=== PATIENT | female | born 1965 | race Caucasian/White ===

== ENCOUNTER 2023-12-07 04:01 | Inpatient (IN) | payer OTHER, SELFPAY ==
[2023-12-06 21:44] VITALS: BP 154/96
[2023-12-06 22:16] LABS: % Basophils 0.5 % (0-2); % Immature Granulocytes 0.1 % (0-0.5); % Lymphocytes 33.8 % (20.5-51.1); % Monocytes 8.3 % (1.7-9.3); % Neutrophils 56.3 % (42.2-75.2); Absolute Eosinophils 0.1 10^3/uL (0-0.7); Absolute Lymphocytes 2.7 10^3/uL (1.2-3.4); Absolute Monocytes 0.7 10^3/uL (0.1-0.6); Absolute Neutrophils 4.5 10^3/uL (1.4-6.5); Hematocrit 39.6 % (37.0-47.0); Hemoglobin 13.3 g/dL (12.0-16.0); Mean Corp Hgb Conc. 33.6 g/dL (33.0-37.0); Mean Corpuscular Hgb 30.9 pg (27.0-31.0); Mean Corpuscular Volume 92.1 fL (81.0-99.0); Mean Platelet Volume 9.7 fL (7.4-10.4); Nucleated Red Blood Cells % 0 %; Platelet Count 225 10^3/uL (130-400); Red Cell Dist. Width 12.2 % (11.5-14.5); White Blood Cell Count 7.9 10^3/uL (4.8-10.8)
[2023-12-06 22:28] LABS: ALT (SGPT) 18 U/L (0-35); AST (SGOT) 24 U/L (14-36); Alkaline Phosphatase 68 U/L (38-126); Blood Urea Nitrogen 10 mg/dl (7-17); Calcium 10.2 mg/dl (8.4-10.2); Carbon Dioxide 28 mmol/L (22-30); Chloride 95 mmol/L (98-107); Glucose 105 mg/dl (70-99); Sodium 131 mmol/L (135-145); Total Bilirubin 0.5 mg/dl (0.2-1.3); Total Protein 8.1 g/dl (6.3-8.2); eGFR > 60.00
[2023-12-06 22:31] LABS: Alcohol None Detected
[2023-12-07] VITALS (15 sets, daily range): BP systolic 111–169; BP diastolic 65–93; PULSE 72–91; O2SAT 95; BMI 28.6; BMI 28.9
--- NOTE | 2023-12-07 01:34 | ED.GENMED ---
History of Present Illness
General
Chief Complaint: Dizziness
Source: patient
Exam Limitations: none
Time Seen by Provider: 12/07/23 00:52
History of Present Illness
History of Present Illness:
58-year-old female has felt slightly off the last 2 days just feeling generally tired. Today she felt lightheaded early followed by disequilibrium. Is having trouble walking with this. No true vertigo no headache no other neurologic symptoms. No
positional component.
Past History
Past History
ED Past Medical History: Hypothyroidism and Other (Chronic diarrhea, urinary incontinence)
ED Past Surgical History: Other (Incontinence surgery)
Social History
Tobacco: Smoker
Alcohol: Binge drinker
Drug: None
Personal: Single
Living: alone (With boyfriend)
Employment: Not employed
Family History
Family History: Other (n/c)
Review of Systems
Review of Systems
All Other Systems: Not applicable
Constitutional: Denies fever or chills
Respiratory: Reports no symptoms
Cardiac: Reports no symptoms
ABD/GI: Reports no symptoms
Phy Exam
Physical Exam
Physical Exam:
GENERAL: Alert and oriented in no apparent distress
EYE: Orbits normal.
NECK: Supple, no significant adenopathy.
ENT: Pharynx without erythema
CARDIAC: Regular rate and rhythm without any obvious murmurs.
LUNGS: Clear breath sounds,normal
ABDOMEN: Soft, without focal tenderness or distention
NEUROLOGICAL: Alert and oriented , speech normal. Cranial nerves II through XII intact. [id number] normal. Gait wide-based and off. Positive Romberg.
SKIN: Warm and dry, no rash or lesion, no discoloration, skin intact.
MUSCULOSKELETAL: No edema,no deformity.Good color
PSYCH: Normal and appropriate interaction.
Course
Orders/Labs/Results
Orders:
Orders
12/06/23 21:48
Electrocardiogram (*1) Urgent
Reason for Study: Vertigo / Dizzy
Head wo Contrast CT [CT Head W/o Iv Contrast] Urgent
Comment:
Reason For Exam: dizziness
EKG- Treatment ONCE
12/06/23 21:54
Alcohol Urgent
CMP [Comprehensive Metabolic Panel] Urgent
Complete Blood Count/With Diff Urgent
12/07/23 00:52
IV Insert/Care/Rem.- Treatment PRN
Meclizine [Antivert] 25 mg PO NOW STA
12/07/23 02:43
Thiamine Injection 200 mg IV NOW STA
12/07/23 02:45
0.9% Sodium Chloride 1000 ml [Nss] 1,000 ml IV 250 mls/hr
12/07/23 03:49
Admit/Transfer Patient As Directed
Co-Sign Provider:
Level of Care: Inpatient admission
Assign to:: Telemetry
Physician / Group: Dustin
Diagnosis: Vertigo
Reason for Telemetry: Arrhythmia
Date to Stop Telemetry: 12/10/23
Time to Stop Telemetry: 11:00
Reason for Hospitalization: Vertigo
Expected length of stay greater than two midnights?: Yes
ELOS- Estimated Length of Stay in days: 2
I certify the patient meets the requirements for IP care: Yes
12/07/23 03:50
Code Status As Directed
Resuscitation Status: Full Code
12/07/23 04:13
Magnesium Urgent
Phosphorus Urgent
12/07/23 Breakfast
Regular
At Your Request: Limited Participation
Levothyroxine [Synthroid] 112 mcg PO DAILY@0600
12/07/23 06:07
0.9% Sodium Chloride [Nss (Preservative Free)] See Protocol IV PRN PRN
Acetaminophen [Tylenol] 650 mg PO Q4HPRN PRN
Albuterol Nebs [Ventolin Nebules] 2.5 mg INH R Q4HPRN PRN
FOLic ACID [Folvite] 1 mg 0.9% Sodium Chloride 50 ml [Nss] 50 ml IV DAILYPRN
Ketorolac [Toradol] 10 mg IV Q6HPRN PRN
Lactated Ringers [Lr] 1,000 ml IV 80 mls/hr
Lorazepam [Ativan] 1 mg IV Q1HPRN PRN
Lorazepam [Ativan] 1 mg PO Q2HPRN PRN
Lorazepam [Ativan] 2 mg IV Q1HPRN PRN
Metoclopramide [Reglan] 10 mg IV Q6HPRN PRN
12/07/23 06:07
Case Management Consult Once
Case Management Consult: Other
Comment: Substance abuse counseling
DIETARY CONSULT Routine
Reason for Consult: Nutrition support, possible refeeding guidelines
Activity As Directed
Activity Level: Ambulate
With Assistance
EKG with chest pain [ECG as needed] As Directed
ECG as needed for:: Chest Pain
I/O [Intake/ Output] As Directed
Frequency: Per unit guidelines
MSAS SCORE As Directed
MSAS Score 0-4: Repeat MSAS every 2 hours until 0-4 for three consecutive assessments, then every 4 hours x 48
hours.
MSAS Score 5-7: For MILD withdrawl symptoms. Repeat MSAS and RASS every 2 hours
MSAS Score 8-11: For MODERATE withdrawal symptoms. Repeat MSAS and RASS every 1 hour. Consider ICU or IMU
level of care.
MSAS Score > 11: For SEVERE withdrawal symptoms. Repeat MSAS and RASS every 1 hour. Notify provider, consider
ICU level of care.
MSAS Additional Instructions: If no improvement or no decrease in score from severe to moderate within 12
hours, consult psychiatry
MSAS Notify Provider: Notify provider if patient requires more than 10 mg of Lorazepam in eight hour period.
Neurological Checks As Directed
Frequency: q4h
Orthostatic Vital Signs As Directed
Orthostatic VS Frequency: BID
Pneumatic Compression Sleeves As Directed
Type: Knee high
Vital Signs As Directed
Frequency: Per unit guidelines
Oxygen Therapy [O2 Therapy] [RESP] Routine
Titrate/Wean O2 to maintain O2 sat greater than (%): 94
Ot Eval And Treat Routine
PT Consult [Pt Eval And Treat] Routine
Activity Level: Ambulate
With Assistance
DX Deep Vein Thrombosis Video Routine
12/07/23 06:55
TSH Reflex To Free T4 Routine
12/07/23 08:00
FOLic ACID [Folvite] 1 mg PO DAILY
Ipratropium/Albuterol Sulfate [Duoneb] 3 ml INH R QID
Thiamine Injection 200 mg IV Q8
12/08/23 07:13
Basic Metabolic Panel IN AM
Complete Blood Count/No Diff IN AM
12/10/23 08:00
Thiamine HCl [Vitamin B1] 100 mg PO BID
12/10/23 11:00
DC Protocol for Telemetry ONCE
Abnormal Lab Results
12/06/23
21:54
Absolute Monos (auto) 0.7 H 10^3/uL
(0.1-0.6)
Sodium 131 L mmol/L
(135-145)
Chloride 95 L mmol/L
(98-107)
Glucose 105 H mg/dl
(70-99)
12/06/23 21:54
12/06/23 21:54
Vital Signs
Initial and Last Documented VS:
Initial Vital Signs
Temp Pulse Resp BP Pulse Ox
97.7 F 86 18 154/96 100
12/06/23 21:44 12/06/23 21:44 12/06/23 21:44 12/06/23 21:44 12/06/23 21:44
Last Documented Vital Signs
Temp Pulse Resp BP Pulse Ox
97.9 F 72 16 137/79 100
12/08/23 15:00 12/08/23 15:30 12/08/23 15:30 12/08/23 15:00 12/08/23 15:30
*Radiology
Radiology exam reviewed: radiology read reviewed (Negative head CT)
*Pulse Oximetry
Patient hypoxic: no
*EKG
Interpreted by ED Provider?: Yes
Interpretation: normal
Comparison EKG: no changes
Heart Rate: 77
Rate: normal
Rhythm: sinus
[place]: normal axis
Interval: normal interval
QRS Pattern: normal QRS
Ischemia: no ischemia
*Critical Care Note
Total Time (30-74mins, 75-104mins- exclusive of procedures): Not Applicable
Update Note
Update Note:
Patient rechecked and remains moderately ataxic. Differential would include small vessel disease CVA vitamin deficiency. Will admit for further care
ED Attending Note
-
Portions of this chart may have been created with voice recognition software.� Occasional wrong word or��sound alike� substitutions may have occurred due to the inherent limitations of voice recognition software.
Discharge Plan
Departure
Patient Disposition: Admit
Date of Disposition: 12/07/23
Time of Disposition: 02:45
Presentation/result/management discussed w/ accepting MD/DO: Hospitalist
Discharge Problem:
Ataxia
Interventions
Interventions:
*General Assessment Last Done: 12/07/23 00:45
*Neglect/Abuse Screening Last Done: 12/07/23 00:45
ED- Fall Risk Assessment Last Done: 12/07/23 00:45
*Nursing Disposition Last Done: 12/07/23 06:07
ED- Neurological Assessment Last Done: 12/07/23 00:45
ED Swallowing Screen Last Done: 12/07/23 00:45
Discharge Date and Time
Discharge Date/Time: 12/07/23 06:07
[2023-12-07] MEDS: ANTIVERT 25 MG PO (01:56)
--- NOTE | 2023-12-07 03:54 | HPS.HSE ---
Family Physician
-
Family Physician: NOT KNOW UNKNOWN - PT DOES
Chief Complaint
-
Dizziness
History of Present Illness
Patient is a 58y F with PMH significant for migraine headaches and alcohol use disorder who presents to ED complaining of dizziness. Patient states that she has felt unwell for the past 2-3 days including general fatigue, increased SOB and
'foggy' feeling. Today she felt dizzy / unsetady on her feet and was unable to stand or ambulate without holding onto furniture or similar. She did not fall. She did not lose consciousness.
Patient presented to the ED for further evaluation. She notes that she had similar symptoms in 2017 which were attributed to migraine.
Patient does admit to headache here in the ED as well.
She denies any focal numbness / weakness. No N/V/D. No fevers / chills.
Patient does drink alcohol daily and states that her last drink was Wednesday evening.
Medical History
Past Medical History
Past Medical History: Reports Other
Additional Past Medical History:
Hypothyroidism
Alcohol Use Disorder
Migraine Headaches
Dyslipidemia
Past Surgical History: Reports Other
Additional Past Surgical History:
Pelvic Floor Surgery
Social History
Tobacco: Smoker (Current every day smoker.)
Alcohol: Daily (7+ drinks per day. Last drink Wednesday evening.)
Drug: None
Family History
Family History: Not pertinent
Allergies / Home Medications
Allergies reflects when Allergies were last updated in [facility].
Home Medications with original date entered in [facility]
Allergy/Medication List:
Allergies
Allergy/AdvReac Type Severity Reaction Status Date / Time
No Known Allergies Allergy Verified 12/06/23 21:43
Home Medications
albuterol sulfate 90 mcg/actuation aerosol inhaler 1 puff inhalation R Q4HPRN PRN wheezing 04/07/17
budesonide-formoterol HFA 160 mcg-4.5 mcg/actuation aerosol inhaler (Symbicort) 2 puff inhalation BID 12/07/23
levothyroxine 112 mcg tablet 112 mcg PO DAILY 12/07/23
Review of Systems
-
History Source: Patient
A 12 point ROS was completed and negative except as noted: Yes
Constitutional: Reports Fatigue; Denies Fever or Chills
Respiratory: Reports Trouble Breathing and Other (Wheezing); Denies Cough
Cardiac: Denies Chest Pain or Palpitations
Abdomen/GI: Denies Abdominal Pain, Nausea, Vomiting, Diarrhea or Constipated
: Denies Dysuria or Frequency
Musculoskeletal: Denies Edema
Neurological: Reports Dizzy and Headache; Denies Weakness or Numbness
Psych: Denies Depression or Anxiety
Physical Exam
Vital Signs
Vital Signs
Temp Pulse Resp BP Pulse Ox
97.7 F 86 18 154/96 100
12/06/23 21:44 12/06/23 21:44 12/06/23 21:44 12/06/23 21:44 12/06/23 21:44
Physical Exam
General: Other (58y F in no acute distress. Appears older than stated age.)
HEENT: Moist mucous membranes and PERRLA
Respiratory: Other (Diffuse expiratory wheezes. No rales / rhonchi.)
Cardiac: S1/S2 and Regular Rhythm; No Murmur
GI: Non Tender, Non Distended, Normal Bowel Sounds and Other (Obese)
Musculoskeletal: No Clubbing, No Cyanosis and No Edema
Neuro: AO x 3 and Other (No appreciable nystagmus. No focal weakness / sensory deficit.)
Laboratory Results
-
12/06/23 21:54
12/06/23 21:54
Laboratory Results
Total Bilirubin 0.5 mg/dl (0.2-1.3) 12/06/23 21:54
AST 24 U/L (14-36) 12/06/23 21:54
ALT 18 U/L (0-35) 12/06/23 21:54
Alkaline Phosphatase 68 U/L (38-126) 12/06/23 21:54
Impression/Plan
-
A/P: Patient is a 58y F with PMH significant for alcohol use disorder and migraine headaches who presents to ED complaining of ataxia.
Ataxia
Migraine Headache
- Admit for further evaluation and treatment.
- CT unremarkable in the ED. Minimal improvement with single dose of meclizine.
- Symptoms likely due to vestibular migraine - similar to 2017 episode.
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
- Supportive care including PRN BZDs, etc.
- PT / OT evaluations.
- Reglan / Toradol for migraine symptoms.
- Follow for clinical improvement.
Alcohol Use Disorder
- Significant alcohol intake. Last drink > 24 hours ago.
- Monitor for signs / symptoms of withdrawal and treat with BZDs as needed.
- Thiamine / folate / etc replacement.
- Very likely that ongoing alcohol use is also contributing to chronic gait / stability issues.
Mild Hyponatremia
- Likely secondary to alcohol intake.
- Monitor for improvement. Fluid restrict if Na levels decrease.
COPD
- Mild, scattered wheezing on exam.
- Patient admits that she does not take her inhalers as prescribed.
- She continues to smoke.
- DuoNebs ATC and albuterol PRN.
- Restart Symbicort BID.
Hypothyroidism
- Continue current T4 supplementation.
- Update TFTs.
DVT Prophylaxis: SCDs
Code Status: Full
[2023-12-07] MEDS: NSS 1000 IV (04:14)
[2023-12-07] MEDS: THIAMINE INJECTION 200 MG IV ×3 (04:17→16:25)
[2023-12-07 04:43] LABS: Magnesium 2.2 mg/dl (1.6-2.3); Phosphorus 4.4 mg/dl (2.5-4.5)
--- NOTE | 2023-12-07 06:06 | PTCARENOTE ---
Pt received from ED to [id number]. Pt oriented to room and call hooks.
[2023-12-07] MEDS: DUONEB 3 ML INH ×4 (07:25→19:12)
[2023-12-07] MEDS: SYMBICORT 160/4.5 MCG INHALER 2 PUFF INH ×2 (07:25→19:13)
[2023-12-07] MEDS: FOLVITE PO ×2 (08:01→09:44)
[2023-12-07] MEDS: FOLVITE 50.2000000000000028 MG IV (08:01)
[2023-12-07] MEDS: SYNTHROID 112 MCG PO (08:01)
[2023-12-07] MEDS: LR 1000 IV ×2 (08:02→20:57)
[2023-12-07 08:33] LABS: TSH Reflex To Free T4 6.89 uIU/ml (0.47-4.68)
[2023-12-07 09:03] LABS: Free T4 0.86 ng/dl (0.78-2.19)
--- NOTE | 2023-12-07 09:16 | CON.NEURO4 ---
Addendum entered and electronically signed by Damon Martinez MD 12/07/23 11:59:
Studies reviewed.
I have personally examined the patient. I reviewed and agree with the HEMODIALYSIS LAB TECHNICIAN's Note.
My addenda:
Awake, alert, interactive. No acute distress.
Speech intact.
Follows 2-step requests w/o difficulty. No tremor.
Extra-ocular movements grossly intact.
Facial movements full and symmetric. Hearing intact to normal conversational volume.
Normal UE movements bilaterally.
Neck: full ROM.
Chest: no dyspnea
Heart: no JVD
Ext: (-) Clubbing, (-) Cyanosis, (-) Edema
IMPRESSIONS/RECOMMENDATIONS:
Abrupt onset of headache and vertigo which is most likely secondary to migraine with aura
Due to the patient's history of smoking and morbid obesity, the possibility in association with her alcohol overexposure, leaves the possibility of acute ischemic stroke although less likely
Initiate aspirin if MRI of brain demonstrates an acute ischemic abnormality
Prochlorperazine as needed for headache
Continue thiamine and folate replacement
Meclizine as needed
D/W patient
Will continue to follow pending results.
Original Note:
Documented by User: Delmi Don NP 12/07/23 11:41
Consultation - Neurology 4
-
CONSULTING PHYSICIAN: Damon Martinez MD
REFERRING PHYSICIAN: Hospitalists/Dr. Love
DICTATED BY: PRISCILA Shelton
DATE/TIME OF REQUEST: 12/07/23
DATE/TIME OF CONSULTATION: 12/07/23
Reason for Consultation: Ataxia
History of Present Illness:
This is a 58-year-old right-handed female who has presented to the hospital on 12/06/23 with report of dizziness and ataxia.. Patient is known to our Neurology service from several encounters in the past for vertiginous migraine.
From previous evaluation by Neurology PRISCILA Munguia on 04/07/17:
'This is a 51 year old female who has presented to the hospital with dizziness and headache. Patient's symptoms began yesterday around 0900. She woke up at 7am and ate a sandwich and felt like her usual self. She laid back down and when she woke
up at 0900, she felt dizzy that was described by her as worse with any movement of her body position along with the need to hold onto garcia to walk. There was an associated photophobia and phonophobia that stated a week ago and has persisted as
well as nausea. The symptoms persisted and she laid in bed all day yesterday. Today she had the same symptoms along with left side of her body with pins and needles and a headache. She did have the same episode occur a couple of months ago at which
time she was found to be B12 deficient and dehydrated. She has a personal history of migraines that are brought on by any heat exposure. She saw a neurologist in the past for her migraines but not for several years and she is not on any specific
medications for this.'
MRI brain was obtained on 04/07/17 and was negative for any acute findings. She was started on amitriptyline for headache prevention at that time but stopped taking it due to side effects which she cannot recall now. She followed up with Neurology
as an outpatient twice but has not been evaluated now since 2018. Patient reports that since that time she has had about one migraine every 6 months with similar symptoms. Her migraines are typically triggered by the heat or lack of sleep. When she
starts to get a migraine she either goes to sleep or takes Tylenol and her symptoms resolve.
For the past several days, patient reports feeling fatigued, brain fog, and dyspneic. Yesterday (12/06/23), she reports several episodes of dizziness and loss of balance. Yesterday evening, she reports feeling increased pressure in her left ear and a
'vacuum' like sound. After this, the dizziness worsened to the point that she couldn't walk at all, prompting her to come to the ER for evaluation. In the ER, she developed a mild headache. CT head was obtained on arrival and is negative for any
acute abnormalities. Today (12/07/23), patient reports minimal improvement in her symptoms. Her headache is left-sided currently and is a 1-2/10. She reports photo/phonophobia and nausea but denies vomiting. The pressure in her left ear has improved
today and she reports hearing normally. She denies any vision changes, speech/swallow difficulty, numbness, weakness, chest pain, palpitations, and shortness of breath. She reports that her current symptoms feel very similar to her migraines in the
past but she wasn't able to sleep much overnight and her dizziness is lasting longer than is usually does. She is not taking any blood-thinning medications.
Past Medical History: Vertiginous migraine, hypothyroidism, chronic diarrhea, urinary incontinence.
Surgical History: Bladder surgery.
Family History: Reviewed and noncontributory.
Social History: Current smoker. Chronic alcohol use, some days 8+ drinks. Denies illicit drug use.
Allergies: No known allergies.
Home Medications: See below.
Review of Symptoms:
Patient denies any fever, chest pain, shortness of breath, or symptoms.
�Per the HPI.�All systems are reviewed negative except above.
Physical Exam:
The patient is afebrile, abdomen is nondistended, breathing is unlabored, skin is warm and dry, no edema.
NIH Stroke Scale:
I performed the NIH stroke scale on the patient on 12/07/23 at 0925. The patient scored 0 points on the NIH stroke scale assessment, which were assigned as follows: See below.
Neurologic Examination:
The patient is awake, alert and oriented x 3. She is able to follow commands and answer questions appropriately. There is no aphasia or dysarthria. On cranial nerve assessment, pupils are 3 mm bilateral, round and reactive to light and
accommodation. Visual [place] are full. Extraocular movements are intact. No nystagmus noted. Facial sensations are intact and bilaterally symmetrical, there is no facial asymmetry. Hearing is intact bilaterally to finger rub. Tongue palate and uvula
are midline. Sternocleidomastoid strengths are full bilaterally. Motor strengths are 5/5 bilateral upper and lower extremities on medical research Ferguson scale. There is no drift or involuntary movement noted. Deep tendon reflexes are 2+ bilateral
upper and lower extremities and Babinski is absent bilaterally. There was no extinction noted on double simultaneous stimulation. Coordination is intact by finger to nose bilaterally.
Lab Results: See below.
Neuro Imaging:
1. CT Head 12/06/23: No acute intracranial abnormality.
2. MRI Brain 04/07/17: Multiple small foci of increased signal in the periventricular, deep, and subcortical white matter of both hemispheres, with number of foci greater than normally seen as an incidental finding at this age. The differential
includes demyelinating disease, vasculitis, small vessel ischemic disease, and Lyme disease. Consider further assessment with intravenous contrast.
Differentials for the patient's presentation include:
1. Vertiginous migraine likely producing symptoms.
2. Significant risk factors for stroke, cannot entirely exclude this as a possibility.
3. No exam finding supportive of a peripheral vertigo.
Patient has the following risk factors for their symptoms: Hx vertiginous migraine, smoker, chronic alcohol
Recommendations:
-Provide prochlorperazine 10mg PO x1 now for headache and can continue q8hrs PRN.
-MRI brain noncontrast pending. Lorazepam on-call for MRI due to severe claustrophobia.
-Continue thiamine/folate replacement.
-PT evaluations.
-NIHSS and neurological checks per unit guidelines.
-Provide patient with a stroke education packet.
-DVT prophylaxis.
-Will follow pending results.
Discussed patient care with: Dr. Martinez, the patient
Vital Signs and Labs
-
Vital Signs and Labs:
Vital Signs
Temp Pulse Resp BP Pulse Ox
98.3 F 72 16 142/82 93
12/07/23 07:00 12/07/23 07:27 12/07/23 07:27 12/07/23 07:00 12/07/23 07:27
Lab Results
12/06/23 21:54
12/06/23 21:54
Sodium 131 mmol/L (135-145) L 12/06/23 21:54
Potassium 4.0 mmol/L (3.5-5.1) 12/06/23 21:54
BUN 10 mg/dl (7-17) 12/06/23 21:54
Glucose 105 mg/dl (70-99) H 12/06/23 21:54
Calcium 10.2 mg/dl (8.4-10.2) 12/06/23 21:54
Phosphorus 4.4 mg/dl (2.5-4.5) 12/07/23 04:13
Medications
-
Active Medications
Generic Name Dose Route Start Last Admin
Trade Name Freq PRN Reason Stop Dose Admin
Acetaminophen 650 mg 12/07/23 06:07
Acetaminophen 325 Mg Tablet PO 01/04/24 06:06
Q4HPRN PRN
Mild Pain / Temp > 101
Albuterol Sulfate 2.5 mg 12/07/23 06:07
Albuterol Nebs 2.5 Mg/3 Ml Ampul INH
R Q4HPRN PRN
SOB
Protocol
Albuterol/Ipratropium 3 ml 12/07/23 08:00 12/07/23 07:25
Ipratropium 0.5/Albuterol 3 Mg (3 Ml Ampul) INH 3 ml
R QID KAM Administration
Protocol
Budesonide/Formoterol Fumarate 2 puff 12/07/23 08:00 12/07/23 07:25
Symbicort Inhaler 160/4.5 INH 01/04/24 07:59 2 puff
R BID KAM Administration
Protocol
Folic Acid 1 mg 12/07/23 08:00 12/07/23 08:01
Folic Acid 1 Mg Tablet PO 01/04/24 07:59 1 mg
DAILY KAM Administration
Lactated Ringer's 1,000 mls @ 80 mls/hr 12/07/23 06:07 12/07/23 08:02
Lr IV 1,000 mls
.[id number] KAM Administration
Folic Acid 1 mg/ Sodium 50.2 mls @ 200.8 mls/hr 12/07/23 06:07
Chloride IV 01/04/24 06:06
DAILYPRN PRN
if NPO
Ketorolac Tromethamine 10 mg 12/07/23 06:07
Ketorolac 15 Mg/Ml Injection IV 12/12/23 06:06
Q6HPRN PRN
Headache
Levothyroxine Sodium 112 mcg 12/07/23 06:00 12/07/23 08:01
Levothyroxine 112 Mcg Tablet PO 01/04/24 05:59 112 mcg
DAILY@0600 KAM Administration
Lorazepam 1 mg 12/07/23 06:07
Lorazepam 1 Mg Tablet PO 01/04/24 06:06
Q2HPRN PRN
MSAS 5-7
Lorazepam 1 mg 12/07/23 06:07
Lorazepam 2 Mg/Ml Vial IV 01/04/24 06:06
Q1HPRN PRN
MSAS 8-11
Lorazepam 2 mg 12/07/23 06:07
Lorazepam 2 Mg/Ml Vial IV 01/04/24 06:06
Q1HPRN PRN
MSAS > 11
Metoclopramide HCl 10 mg 12/07/23 06:07
Metoclopramide 10 Mg/2 Ml Vial IV 01/04/24 06:06
Q6HPRN PRN
Headache / Nausea
Sodium Chloride 0 ml 12/07/23 06:07
Sodium Chloride 0.9% (Preservative Free) 10 Ml Vial IV 01/04/24 06:06
PRN PRN
To dilute IV Ativan
Protocol
Sodium Chloride 0 flush 12/07/23 07:00
Sodium Chloride 0.9% (Flush) Syringe IV 01/04/24 06:59
PER PROTOCOL KAM
Thiamine HCl 200 mg 12/07/23 08:00 12/07/23 08:00
Thiamine (100 Mg/Ml) 2 Ml Vial IV 12/10/23 00:01 200 mg
Q8 KAM Administration
Thiamine HCl 100 mg 12/10/23 08:00
Thiamine 100 Mg Tablet PO 01/07/24 07:59
BID KAM
Home Medications
�Medication �Instructions �Recorded
albuterol sulfate 90 mcg/actuation 1 puff inhalation R Q4HPRN PRN 04/07/17
aerosol inhaler wheezing
budesonide-formoterol HFA 160 2 puff inhalation BID 12/07/23
mcg-4.5 mcg/actuation aerosol
inhaler (Symbicort)
levothyroxine 112 mcg tablet 112 mcg PO DAILY 12/07/23
NIH Stroke Score
Subsequent NIH Scale
Date of Subsequent NIH Scale: 12/07/23
Time of Subsequent NIH Scale: 09:25
NIH Stroke Score
Level of Consciousness: 0 - Alert
LOC Questions: 0-Answers both correctly
LOC Commands: 0-Performs both correctly
Best Horizontal Gaze: 0-Normal
Visual [place]: 0=Normal, no visual loss
Facial Palsy: 0=Normal, symmetrical
Motor - Right Arm: 0=No drift 10 seconds
Motor - Left Arm: 0=No drift 10 seconds
Motor - Right Le-No drift 5 seconds
Motor - Left Le-No drift 5 seconds
Limb Ataxia: 0-Absent
Sensation: 0-Normal
Best Language: 0-No aphasia
Dysarthria: 0-Normal
Extinction and Inattention: 0-No abnormality
Total Score:: 0

Documented by User: Damon Martinez MD 12/07/23 11:47
NIH Stroke Score
NIH Stroke Score
Total Score:: 0
[2023-12-07] MEDS: NSS IV (09:36)
[2023-12-07] MEDS: COMPAZINE 10 MG PO (10:14)
[2023-12-07] MEDS: ATIVAN 1 MG PO (14:48)
[2023-12-08] VITALS (7 sets, daily range): BP systolic 126–173; BP diastolic 63–93; PULSE 69–81; O2SAT 98
[2023-12-08] MEDS: THIAMINE INJECTION 200 MG IV ×3 (00:20→15:30)
[2023-12-08] MEDS: SYNTHROID 112 MCG PO (06:08)
[2023-12-08] MEDS: FOLVITE 1 MG PO (07:08)
[2023-12-08] MEDS: TYLENOL 650 MG PO (07:08)
[2023-12-08 07:36] LABS: Hematocrit 34.5 % (37.0-47.0); Hemoglobin 11.7 g/dL (12.0-16.0); Mean Corp Hgb Conc. 33.9 g/dL (33.0-37.0); Mean Corpuscular Volume 91.3 fL (81.0-99.0); Mean Platelet Volume 9.7 fL (7.4-10.4); Platelet Count 190 10^3/uL (130-400); Red Blood Cell Count 3.78 10^6/uL (4.20-5.40); Red Cell Dist. Width 12.2 % (11.5-14.5); White Blood Cell Count 7.2 10^3/uL (4.8-10.8)
--- NOTE | 2023-12-08 07:49 | W.PN.NEURO.1 ---
Today's Communication / Plan
-
Prochlorperazine as needed for headache
Continue thiamine and folate replacement
Meclizine as needed
Neuro Assessment/Plan
Assessment
IMPRESSIONS/RECOMMENDATIONS:
Abrupt onset of headache and vertigo which is most likely secondary to migraine with aura
Due to the patient's history of smoking and morbid obesity, the possibility in association with her alcohol overexposure, leaves the possibility of acute ischemic stroke although less likely
Plan
Prochlorperazine as needed for headache
Continue thiamine and folate replacement
Meclizine as needed
Will follow as needed
Subjective/Objective
Subjective Data
Date of Service: December 08, 2023
Objective Data
Vital Signs
Temp Pulse Resp BP Pulse Ox
36.8 C 73 19 126/63 95
12/08/23 03:00 12/08/23 03:00 12/08/23 03:00 12/08/23 03:00 12/08/23 03:00
Sodium 131 mmol/L (135-145) L 12/06/23 21:54
Potassium 4.0 mmol/L (3.5-5.1) 12/06/23 21:54
BUN 10 mg/dl (7-17) 12/06/23 21:54
Glucose 105 mg/dl (70-99) H 12/06/23 21:54
Calcium 10.2 mg/dl (8.4-10.2) 12/06/23 21:54
Phosphorus 4.4 mg/dl (2.5-4.5) 12/07/23 04:13
Patient Allergies
No Known Allergies Allergy (Verified 12/06/23 21:43)
Data Reviewed
-
MRI Head: Report Reviewed
Labs: Report Reviewed
Reviewed with: Physician and Patient
Old Records: Summarized
[2023-12-08 07:59] LABS: Blood Urea Nitrogen 7 mg/dl (7-17); Calcium 9.6 mg/dl (8.4-10.2); Carbon Dioxide 27 mmol/L (22-30); Chloride 102 mmol/L (98-107); Estimated Creatinine Clearance 90 ml/min; Glucose 98 mg/dl (70-99); Potassium 3.8 mmol/L (3.5-5.1); Sodium 135 mmol/L (135-145); eGFR > 60.00
[2023-12-08] MEDS: SYMBICORT 160/4.5 MCG INHALER 2 PUFF INH (08:00)
[2023-12-08] MEDS: DUONEB 3 ML INH ×3 (08:01→15:29)
[2023-12-08] MEDS: LR 1000 IV (08:15)
--- NOTE | 2023-12-08 11:40 | W.DCSUMMARY ---
Discharge Summary
Discharge Data
Date of Admission: 12/07/23
Date of Discharge: 12/08/23
Total time spent discharging patient (in min): 40
-
Pending Results: No
Hospital Course
Presented with dizziness that has been ongoing for 2 to 3 days with associated increased weakness denies shortness of breath foggy feeling and fullness in the ear. Has known history of vertiginous migraines and alcohol use disorder. Additionally
is a smoker. Neurology was consulted and recommended MRI brain PT OT to rule out posterior CVA. MRI findings are as below. Was evaluated by physical therapy recommended vestibular rehab, ambulation with supervision as she stated that her
boyfriend can supervise her to ambulate. Will be discharged home with outpatient neurology follow-up recommendations to discontinue alcohol use continue thiamine folate outpatient PT follow-up as well. Will need to see outpatient PCP.
Asked to be discharged home with thiamine folate. PT OT also recommended commode
CTBrain
IMPRESSION:
No acute intracranial abnormality.
MRI Brain
IMPRESSION: No evidence of acute cranial abnormality.
Mild to moderate atrophy. Mild to moderate T2 and FLAIR white matter hyperintensities, slightly increasing from examination April 07, 2017. The atrophy and white matter hyperintensities are greater than generally expected for a 58-year-old patient.
Discharge Plan
-
Patient Disposition: Home (Routine Discharge)
Discharge Diagnosis/Procedures: Migraine headaches, alcohol use disorder
Vertiginous migraine
Condition: Good
Diet: No restrictions, As tolerated and Regular
Activity: With assistance
Additional Activity: supervision for ambulation, boyfriend to help
Driving Restrictions: As prior to admission
Bathing Restrictions: None
Referrals:
Damon Martinez MD [Active] - in less than 1 week
UNKNOWN - PT DOES,NOT KNOW [Family Provider] -
Additional Discharge Medication Instructions: With that has been ongoing for 2 to 3 days with associated increased weakness denies shortness of breath foggy feeling and fullness in the ear. Has known history of vertiginous migraines and alcohol use
disorder. Additionally is a smoker. Neurology was consulted and recommended MRI brain PT OT to rule out posterior CVA. MRI findings are as below. Was evaluated by physical therapy recommended vestibular rehab, ambulation with supervision as she
stated that her boyfriend can supervise her to ambulate. Will be discharged home with outpatient neurology follow-up recommendations to discontinue alcohol use continue thiamine folate outpatient PT follow-up as well. Will need to see outpatient
PCP.
Asked to be discharged home with thiamine folate. PT OT also recommended commode
CTBrain
IMPRESSION:
No acute intracranial abnormality.
MRI Brain
IMPRESSION: No evidence of acute cranial abnormality.
Mild to moderate atrophy. Mild to moderate T2 and FLAIR white matter hyperintensities, slightly increasing from examination April 07, 2017. The atrophy and white matter hyperintensities are greater than generally expected for a 58-year-old
patient.
Prescriptions:
New
thiamine HCl (vitamin B1) 100 mg Tablet
100 mg PO BID 30 Days Qty: 60 0RF
folic acid 1 mg Tablet
1 mg PO DAILY Qty: 30 0RF
Continued
albuterol sulfate 1 PUFF HFA aerosol inhaler
1 puff inhalation R Q4HPRN PRN (Reason: wheezing)
levothyroxine 112 mcg Tablet
112 mcg PO DAILY
budesonide-formoterol [Symbicort] 160-4.5 mcg/actuation Hfa Aerosol Inhaler
2 puff INHALATION BID
Discharge Date and Time
Print Language: ANGOLAN
[2023-12-08] MEDS: MIRALAX 17 GRAMS PO (11:53)
--- NOTE | 2023-12-08 15:14 | CM ---
Patient seen bedside with boyfriend, initial assessment completed. Patient resides with significant other in a second story apartment, twelve steps to enter. Patient denies the use of DME, denies VN or SNF history. Patient confirms PCP
[facility], [facility] used [facility]. Patient denies housing/utility, transportation, and food insecurities. Patient declines [facility] resources. Patient declines referral for VN. Patient requesting commode, PT able to provide,
[facility] for script. CM will continue to follow for all discharge planning needs.
Plan; home with commode.
--- NOTE | 2023-12-08 16:11 | W.PN.HOSP.TC ---
Today's Communication/Plan
-
dc home
Assessment / Plan
Assessment / Plan
MRI negative. Suspect dizziness likely secondary to vertiginous migraine. Now improved significantly. Still has some ataxia PT however is recommending home with supervised care for which she has appointment. She did ask for a commode for which I
provided a prescription for. She will need to follow-up with outpatient PCP and neurology follow-up. Will plan to discharge home today.
Anticipated Discharge: Today
Subjective/Interval History
-
Date of Service: December 08, 2023
seen and examined. no new complaitns. no acute overnight events
dizziness improvement
Objective Data
-
Labs:
Laboratory Results
12/08/23
07:13
WBC 7.2
Hgb 11.7 L
Hct 34.5 L
Plt Count 190
Sodium 135
Potassium 3.8
Chloride 102
Carbon Dioxide 27
BUN 7
Creatinine 0.6
Glucose 98
Calcium 9.6
Vital Signs:
Vital Signs
Temp Pulse Resp BP Pulse Ox
97.9 F 72 16 137/79 100
12/08/23 15:00 12/08/23 15:30 12/08/23 15:30 12/08/23 15:00 12/08/23 15:30
I&O
12/07/23 12/08/23 12/09/23
06:59 06:59 06:59
Intake Total 3560 / 3560
Output Total 1800 / 1800
Balance 1760 / 1760
== END 2023-12-08 17:34 | disposition home or self-care (01) | DRG 103 ==
LOC: 4 WEST ACU 04:01
PROVIDERS: ADMITTING PHYSICIAN Hospitalist; ATTENDING PHYSICIAN Hospitalist; CONSULT PHYSICIAN Psychiatry & Neurology Neurology; EMERGENCY PHYSICIAN Emergency Medicine
DX: G43.909 Migraine, unspecified, not intractable, without status migrainosus (principal); E87.1 Hypo-osmolality and hyponatremia; F17.200 Nicotine dependence, unspecified, uncomplicated; F10.10 Alcohol abuse, uncomplicated; J44.9 Chronic obstructive pulmonary disease, unspecified; E03.9 Hypothyroidism, unspecified
CPT/HCPCS: 70450; 70551; 80048; 80053; 82077; 83735; 84100; 84439; 84443; 85025; 85027; 93005; 94640; 97116; 97162; 97166; 99285; 99406

== ENCOUNTER → 2024-04-19 12:45 | Outpatient (REF) | payer OTHER, SELFPAY | LOC: WDC 12:45 | PROVIDERS: ATTENDING PHYSICIAN Family Medicine | DX: F17.210 Nicotine dependence, cigarettes, uncomplicated (principal); Z12.31 Encounter for screening mammogram for malignant neoplasm of breast | CPT/HCPCS: 71271; 77063; 77067 ==

== ENCOUNTER → 2024-05-23 07:06 | Outpatient (REF) | payer OTHER, SELFPAY | LOC: RAD 07:06 | PROVIDERS: ATTENDING PHYSICIAN Family Medicine; FAMILY PHYSICIAN Family Medicine | DX: M79.605 Pain in left leg (principal); M79.604 Pain in right leg | CPT/HCPCS: 93922; 93925 ==